=== PATIENT | female | born 1955 | race Asian ===

== ENCOUNTER 2018-02-13 19:13 | Emergency (ER) | payer MEDICARE, OTHER ==
[~2018-02-13] VITALS: Ht 157.5 cm; Wt 46.7 kg
[~2018-02-13 19:13] MED LIST: ASPIRIN81 M1 PO; BONIVA; BUSPAR5 MG PO; CREON PO; IBUPROFEN600 MG ORAL; MACROBID 100 M100 MG PO; PLAVIX75 MG PO; PRILOSEC OTC20 MG PO; ROBAXIN-750750 MG PO; SIMVASTATIN20 MG PO
[2018-02-13] MEDS ORDERED: LORazepam 0.5mg tab ORAL ONE (19:30)
[2018-02-13] MEDS ORDERED: Acetaminophen 500mg (ES) tab PO ONE (19:30)
[2018-02-13 20:30] VITALS: BP 128/88
[2018-02-13] MEDS ORDERED: ROBAXIN-750750 MG PO (20:32)
[2018-02-13] MEDS ORDERED: TYLENOL EXTRA500 MG ORAL (20:32)
[2018-02-13 20:38] VITALS: BP 144/84
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
== END 2018-02-13 20:38 | disposition home or self-care (01) ==
LOC: EDBD 19:13 → EMR 19:55
DX: S39.012A Strain of muscle, fascia and tendon of lower back, initial encounter (principal); V49.69XA Unspecified car occupant injured in collision with other motor vehicles in traffic accident, initial encounter; Y92.481 Parking lot as the place of occurrence of the external cause; M81.0 Age-related osteoporosis without current pathological fracture
CPT/HCPCS: 72020; 99284